=== PATIENT | female | born 1975 | race Caucasian/White ===

== ENCOUNTER 2019-08-23 20:33 | Emergency (ER) | payer SELFPAY ==
[2019-08-23] MEDS ORDERED: Ketorolac Tromethamine 30 MG/ML VIAL ONE (21:18)
[2019-08-23] MEDS ORDERED: Sodium Chloride 0.9% 1,000 ML ONE (21:18)
--- NOTE | 2019-08-23 21:50 | RAD ---
EXAM: Two views chest PROVIDED CLINICAL HISTORY: Productive cough and fever COMPARISON: None FINDINGS: Cardiac silhouette is at the upper limits normal in size. The pulmonary vasculature is within normal limits. The lungs are clear. The osseous structures have a normal appearance. Surgical clips overlie the upper abdomen. IMPRESSION: No acute cardiopulmonary process.
[2019-08-23] MEDS ORDERED: Oseltamivir 75 MG CAP ONE (22:13)
== END 2019-08-23 22:31 | disposition home or self-care (01) ==
LOC: MADERS 20:33
DX: J11.1 Influenza due to unidentified influenza virus with other respiratory manifestations (principal)
CPT/HCPCS: 71046; 96361; 96374; J1885; J7050